=== PATIENT | male | born 1970 | race African-American/Black ===

== ENCOUNTER → 2017-01-20 | Outpatient (CLI) | payer MEDICARE ==
[~2017-01-20] MED LIST: No meds per pt.
[2017-01-20 11:53] LABS: PATH.CAST-FLAG NOT PRESENT; SPERM-FLAG NOT PRESENT; SRC-FLAG NOT PRESENT; XTAL-FLAG NOT PRESENT; YLC-FLAG NOT PRESENT
[2017-01-20 12:23] LABS: BLOOD UREA NITROGEN 13 mg/dL (7-18)
== END | disposition home or self-care (01) ==
LOC: STAR 10:41
PROVIDERS: ATTEND Neurological Surgery
DX: Z01.818 Encounter for other preprocedural examination (principal); M47.812 Spondylosis without myelopathy or radiculopathy, cervical region; M48.02 Spinal stenosis, cervical region; R79.1 Abnormal coagulation profile
CPT/HCPCS: 36415; 71020; 80048; 81001; 85025; 85610; 85730; 93005

== ENCOUNTER 2018-06-12 00:43 | Emergency (ER) | payer MEDICARE ==
[~2018-06-12] VITALS: Ht 167.6 cm; Wt 70.2 kg
[~2018-06-12 00:43] MED LIST changes: +CEPH-376 PO; +CYCL-259 PO; +HYDR-3307 PO
[2018-06-12 00:48] VITALS: BP 139/92
== END 2018-06-12 02:44 | disposition home or self-care (01) ==
LOC: ED 02:38
DX: S62.234A Other nondisplaced fracture of base of first metacarpal bone, right hand, initial encounter for closed fracture (principal); X58.XXXA Exposure to other specified factors, initial encounter; Y93.89 Activity, other specified; Y99.8 Other external cause status; Y92.89 Other specified places as the place of occurrence of the external cause
CPT/HCPCS: 29125; 99284

== ENCOUNTER 2018-06-17 09:19 | Emergency (ER) | payer MEDICARE ==
[~2018-06-17] VITALS: Ht 167.6 cm; Wt 71.4 kg
[2018-06-17 10:37] VITALS: BP 134/78
== END 2018-06-17 10:40 | disposition home or self-care (01) ==
LOC: ED 10:00
DX: S62.234A Other nondisplaced fracture of base of first metacarpal bone, right hand, initial encounter for closed fracture (principal); I10 Essential (primary) hypertension; W51.XXXA Accidental striking against or bumped into by another person, initial encounter; Y93.89 Activity, other specified; Y99.8 Other external cause status; Y92.009 Unspecified place in unspecified non-institutional (private) residence as the place of occurrence of the external cause
CPT/HCPCS: 29125; 99283

== ENCOUNTER 2018-11-27 07:09 | Emergency (ER) | payer MEDICARE ==
[~2018-11-27] VITALS: Ht 170.2 cm; Wt 73.0 kg
[2018-11-27 07:11] VITALS: BP 125/90
--- NOTE | 2018-11-27 07:26 | NUR ---
C-COLLAR IN PLACE, SPINE/NECK PRECAUTIONS IN PLACE. PT VERBALIZES UNDERSTANDING OF POC
[2018-11-27] MEDS ORDERED: METHOCARBAMOL 750 MG TABLET PO ONE (07:30)
[2018-11-27] MEDS ORDERED: KETOROLAC 30 MG/1 ML IM ONE (07:30)
[2018-11-27] MEDS ORDERED: METHOCARBAMOL 750 MG TABLET ONE (07:33)
[2018-11-27] MEDS ORDERED: KETOROLAC 30 MG/1 ML ONE (07:33)
== END 2018-11-27 08:29 | disposition home or self-care (01) ==
LOC: ED 08:14
DX: S16.1XXA Strain of muscle, fascia and tendon at neck level, initial encounter (principal); I10 Essential (primary) hypertension; V79.19XA Passenger on bus injured in collision with other motor vehicles in nontraffic accident, initial encounter; Y93.89 Activity, other specified; Y92.89 Other specified places as the place of occurrence of the external cause; Y99.8 Other external cause status
CPT/HCPCS: 72020; 72050; 96372; 99283; J1885

== ENCOUNTER 2021-01-23 16:22 | Emergency (ER) | payer OTHER, MEDICARE ==
[~2021-01-23 16:22] MED LIST changes: -CYCL-259 PO; +CYCL10TA2 PO; +HYDR-3248 PO; -HYDR-3307 PO
--- NOTE | 2021-01-23 17:19 | NUR ---
FLAVOR TANK TENDER: PT AMBULATORY TO ROOM FROM LOBBY AT THIS TIME
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
--- NOTE | 2021-01-23 18:15 | NUR ---
PATIENT SITTING IN [place] [facility], CALL LIGHT WITHIN REACH, NO PROVIDER ORDERS YET.
--- NOTE | 2021-01-23 18:57 | NUR ---
REPORT GIVEN TO CECE ASHRAF AND CECE TRAYLOR FOR TRANSFER OF PATIENT CARE.
--- NOTE | 2021-01-23 19:05 | NUR ---
Patient is resting comfortably in bed. Bed in lowest, rails engaged, call light on lap. Vital Signs within normal limits. WCTM. BRITTNEY BANDAGE APPLIED TO PTS RIGHT KNEE
--- NOTE | 2021-01-23 19:10 | NUR ---
PRECEPTOR RN: KNEE BRITTNEY WRAPPED AND PT PROVIDED ICE FOR COMFORT. Patient is resting comfortably in bed. Bed in lowest, rails engaged, call light on lap. TM.
--- NOTE | 2021-01-23 19:25 | NUR ---
PT OFF UNIT IN IMAGING.
[2021-01-23 20:39] VITALS: BP 158/99
--- NOTE | 2021-01-23 20:41 | NUR ---
Patient/Caregiver given discharge instructions and they have confirmed that they understand the instructions. Patient ambulatory with steady gait. NAD, all questions answered appropriately, denies additional needs at this time. No personal belongings left in room after discharge.
== END 2021-01-23 20:42 | disposition home or self-care (01) ==
LOC: ED 19:21
DX: S16.1XXA Strain of muscle, fascia and tendon at neck level, initial encounter (principal); S83.92XA Sprain of unspecified site of left knee, initial encounter; I10 Essential (primary) hypertension; S09.90XA Unspecified injury of head, initial encounter; V49.49XA Driver injured in collision with other motor vehicles in traffic accident, initial encounter; Y93.89 Activity, other specified; Y92.410 Unspecified street and highway as the place of occurrence of the external cause; Y99.8 Other external cause status
CPT/HCPCS: 70450; 72125; 99285